=== PATIENT | male | born 1960 | race Caucasian/White ===

== ENCOUNTER 2020-03-19 07:31 | Outpatient (CLI) | payer OTHER, SELFPAY ==
--- NOTE | 2020-03-21 12:44 | SLEEP_ITS ---
Home Sleep Test DATE OF STUDY: 03/19/2020 ORDERING PHYSICIAN: Elisa Charles M.D. REASON FOR THIS STUDY: Hypersomnolence. HISTORY: The patient is a 60-year-old male, 5 feet 7 inches tall weighing 270 pounds with a body mass index of 42.2. His complaints include loud snoring that bothers his . She frequently complains about it. He does not awaken at night with heartburn, belching, coughing, or feeling short of breath. He does not have trouble sleeping with a cold, does not gasp for breath at night, have breathing problems witnessed by others, sweat excessively at night, notices heart pounding irregularly at night, fall asleep during the day, fall asleep involuntarily, while driving, with physical effort and does not have loss of muscle tone with strong emotion. He denies having daytime difficulties due to excess sleepiness. He is self-employed. He does not have loss of muscle tone with strong emotion. He does not feel paralyzed on waking or falling asleep. He does not have vivid dreamlike scenes upon awakening or falling asleep. He is never afraid to go to sleep. He rarely remembers his dreams. He occasionally has racing thoughts. He never has feelings of sadness or depression. He occasionally has anxiety. He does not have muscular tension, notice parts of his body jerking, does not kick at night or have crawly achy feelings in his legs or have leg pain at night. He does not have morning jaw pain. He does not grind his teeth during sleep. He is not bothered by pain during the day nor he is awakened by pain at night. He occasionally wakes up in the morning feeling stiff with sore achy muscles. Normal bedtime is 10:30 p.m., falling asleep in 5 minutes, waking 3 times at night for a few minutes to roll over and then go back to sleep. He awakens in the morning at 5:30. He does not take naps. A short nap is not refreshing. Most of the time he feels good in the morning. He does feel better in the afternoon than the morning. MEDICAL COMORBIDITIES: Prediabetes, hypogonadism on testosterone injections monthly, erectile dysfunction, daytime somnolence. MEDICATIONS: 1. Sildenafil 20 mg 2 tablets p.r.n. 2. Testosterone cypionate 200 mg per/mL injected monthly. HABITS: Never smoked tobacco. Caffeine, 24 ounces of soda a day. No alcohol. No recreational drugs. DESCRIPTION OF THE STUDY: On the [place] Sleepiness Scale, the score is 8. This was conducted as an unattended type 3 portable home sleep test using 4 channel monitoring with respiratory effort channel, snoring channel, oxygen saturation channel, and heart rate channel. This study was scored using [facility] guidelines. The duration was 6 hours 27 minutes. The apnea-hypopnea index is 52, significantly elevated. The oxygen desaturation index is 50. Lowest desaturation is 66%. He had 66 apneas, which were all obstructive, 271 hypopneas, 5449 snoring events and had 322 desaturations spending 118 minutes or 30% of the study below 88% saturation. Pulse ranged from 44 to 82. IMPRESSION: Extremely severe obstructive sleep apnea syndrome G47.33 with an AHI of 52.2, deep sustained desaturation to 66%, loud constant snoring and sustained hypoxemia with 30% of the study or 118 minutes below 88% RECOMMENDATION: The patient should be treated with APAP 5 to 20 cm with close clinical followup. He denies daytime sleepiness, but should be cautioned to be attentive to daytime sleepiness and not drive if he is sleepy. Elevated body mass index of 42.2 is greater than ideal and he should be encouraged to strive to achieve ideal body mass index. Close clinical followup is recommended. ANISH LYLES M.D. DD: 0
== END 2020-03-19 07:32 | disposition home or self-care (01) ==
LOC: ANHCSM 07:48
PROVIDERS: PCP Family Medicine; Visit Provider Family Medicine
DX: R29.818 Other symptoms and signs involving the nervous system (principal); R40.0 Somnolence
CPT/HCPCS: 95806

== ENCOUNTER 2020-12-19 15:28 | Outpatient (CLI) | payer OTHER, SELFPAY ==
--- NOTE | ~2020-12-19 | XR_ITS ---
EXAMINATION: XR lumbar spine 2-3V DATE: 12/19/2020 16:06 INDICATION: Left-sided back pain TECHNIQUE: Anteroposterior and lateral views of the lumbar spine, and cone-down lateral view of the l umbosacral junction were obtained. COMPARISON: None. FINDINGS: Alignment is normal. Vertebral body heights are normal. Mild disc height loss at 11-12. Mild degenera tive endplate changes without significant disc height loss at L3-L4 and L4-L5. Moderate to severe fac et osteoarthritis bilaterally at L5-S1. Sacrum and bilateral sacroiliac joints are unremarkable. IMPRESSION: 1. Severe bilateral facet osteoarthritis at L5-S1. Otherwise minimal lumbar spondylosis. Reviewed, dictated and finalized at location A. IMPRESSION: 1. Severe bilateral facet osteoarthritis at L5-S1. Otherwise minimal lumbar spo ndylosis.
== END 2020-12-19 15:29 | disposition home or self-care (01) ==
PROVIDERS: PCP Family Medicine; Visit Provider Family Medicine
DX: M51.36 Other intervertebral disc degeneration, lumbar region (principal); M47.896 Other spondylosis, lumbar region
CPT/HCPCS: 72100

== ENCOUNTER 2022-10-24 15:43 | Outpatient (CLI) | payer OTHER, SELFPAY ==
[2022-10-24 19:20] LABS: Kit Draw Collected
== END 2022-10-24 15:44 | disposition home or self-care (01) ==
LOC: ANHGOSHLAB 15:45
PROVIDERS: PCP Family Medicine; Visit Provider Nurse Practitioner Family
DX: E55.9 Vitamin D deficiency, unspecified (principal); E29.1 Testicular hypofunction; R73.03 Prediabetes; Z13.220 Encounter for screening for lipoid disorders; Z79.899 Other long term (current) drug therapy; Z12.5 Encounter for screening for malignant neoplasm of prostate
CPT/HCPCS: 36415

== ENCOUNTER 2024-05-17 14:33 | Outpatient (CLI) | payer OTHER, SELFPAY ==
[2024-05-17 20:40] LABS: HIV 1/2 Ab P24 Ag Result Negative (Negative)
[2024-05-17 21:10] LABS: Hepatitis B Surface Antigen Negative (Negative)
[2024-05-17 21:15] LABS: HAV RESULT Negative (Negative); Hepatitis B Core IgM Result Negative (Negative)
[2024-05-17 21:27] LABS: Hepatitis C Virus Antibody Negative (Negative)
[2024-05-17 22:16] LABS: Chlamydia trachomatis NOT DETECTED (NOT DETECTE); Neisseria gonorrhoeae PCR NOT DETECTED (NOT DETECTE)
[2024-05-18 07:45] LABS: Rapid Plasma Reagin Non-Reactive (NonReactive)
== END 2024-05-17 14:34 | disposition home or self-care (01) ==
PROVIDERS: PCP Family Medicine; Visit Provider Family Medicine
DX: Z11.3 Encounter for screening for infections with a predominantly sexual mode of transmission (principal); R35.0 Frequency of micturition
CPT/HCPCS: 36415; 80074; 86592; 86703; 87491; 87591; G0432

== ENCOUNTER 2024-10-28 09:05 | Outpatient (CLI) | payer OTHER, SELFPAY ==
--- OUTSIDE RECORDS SUMMARY | 2024-10-28 09:29 | XMS_ITS | Clinical Summary ---
Author Organization [facility] Address [facility] [place] [address] Care Team Providers Care Lands Resource Manager Name Role Phone Elisa Charles MD Primary Care Provider Allergies Active Allergy Reactions Criticality Noted Date Comments Ragweed Unknown 06/01/2020 Medications sildenafil 20 MG tablet TK 2 TS PO QD PRN FOR SEXUAL ACTIVITY 0 Active testosterone cypionate 200 MG/ML injection TK 200 MG IM MONTHLY 0 Active vitamin C 500 MG tablet Take 500 mg by mouth daily. Active Multiple Vitamin (MULTI-VITAMIN DAILY OR) Active fish oil 1000 MG Cap capsule Take 1,000 mg by mouth 2 (two) times daily. Active vitamin D3 (CHOLECALCIFERO L) 25 mcg tablet Take 1 tablet (25 mcg total) by mouth daily. Active valACYclovir (VALTREX) 1 g tablet Take 1 tablet (1,000 mg total) by mouth 3 (three) times daily. 21 tablet 3 Active naproxen (NAPROSYN) 375 MG tablet Take 1 tablet (375 mg total) by mouth 2 (two) times daily with meals. 60 tablet 4 Active dextromethorpha n-guaiFENesin ER (MUCINEX DM) 30-600 MG TABLET SR 12 HR 12 hr tablet Take 1 tablet by mouth every 12 (twelve) hours as needed. 28 tablet 5 Active fluticasone propionate (FLONASE) 50 MCG/ACT nasal spray 1 spray by Each Nostril route daily as needed. 1 g 5 Active benzonatate (TESSALON) 100 MG capsule Take 1 capsule (100 mg total) by mouth 3 (three) times daily as needed for Cough. 20 capsule 10/20/19 Active Problems No known active problems Encounters Date Type Department Care Team Description 10/13/2024 9:34 AM TRAVEL PT - 10/13/2024 11:28 AM TRAVEL PT Hospital Encounter [facility] [address] [place] [address] Meg Mitchell MD Jarrett, Benjamin, MD Sinus Problem Discharge Disposition: Home or Self Care (Routine Discharge) 10/13/2024 Travel 08/25/2024 9:32 AM TRAVEL PT - 08/25/2024 10:20 AM TRAVEL PT Hospital Encounter [facility] [address] [place] [address] Deborah Krishna DO URI Discharge Disposition: Home or Self Care (Routine Discharge) 08/25/2024 Travel from Last 3 Months Family History Medical History Relation Comments No Known Problems Brother Cancer Father No Known Problems Maternal Aunt No Known Problems Maternal Grandfather No Known Problems Maternal Grandmother No Known Problems Maternal Uncle Cancer Mother No Known Problems Paternal Aunt No Known Problems Paternal Grandfather No Known Problems Paternal Grandmother No Known Problems Paternal Uncle No Known Problems Sister Relation Status Comments Brother Father Maternal Aunt Maternal Grandfather Maternal Grandmother Maternal Uncle Mother Paternal Aunt Paternal Grandfather Paternal Grandmother Paternal Uncle Sister Social History Tobacco Use Types Packs/Day Years Used Date Smoking Tobacco: Never Passive Smoke Exposure: Never Smokeless Tobacco: Never Tobacco Cessation:Counseling Given: Not Answered Alcohol Use Standard Drinks/Week Comments Yes 0 (1 standard drink = 0.6 oz pur e alcohol) Occasionally Sex and Gender Information Value Date Recorded Sex Assigned at Male 10/13/2024 9:29 AM TRAVEL PT Legal Sex Male 11:25 AM CDT Gender Identity Not on file Sexual Orientation Not on file Last Filed Vital Signs Vital Sign Reading Time Taken Comments Blood Pressure 175/76 10/13/2024 9:37 AM TRAVEL PT Pulse 65 10/13/2024 9:37 AM TRAVEL PT Temperature 36.7 C (98.1 F) 10/13/2024 9:37 AM TRAVEL PT Respiratory Rate 18 10/13/2024 9:37 AM TRAVEL PT Oxygen Saturation 97% 10/13/2024 9:37 AM TRAVEL PT Inhaled Oxygen Concentration - - Weight 122.5 kg (270 lb) 10/13/2024 9:37 AM TRAVEL PT Height 172.7 cm (5' 8 ) 10/13/2024 9:37 AM TRAVEL PT Body Mass Index 41.05 10/13/2024 9:37 AM TRAVEL PT Plan of Treatment Health Maintenance Due Date Last Done Comments Colorectal Cancer Screening Colonoscopy (10 Years) 1961 Annual Physical 1964 Hepatitis C 1979 Zoster Vaccines (1 of 2) 2011 RSV Immunization or 60+ Years (1 - Risk 60-74 years 1-dose series) 2021 COVID-19 Vaccine (3 - 2023-2 5 season) 2024 05/06/2021, 04/08/2021 Influenza Adult (#1) 2024 DTaP, Tdap and Td Vaccines ( 2 - Td or Tdap) 02/05/2025 02/05/2015 Meningococcal B Vaccine Aged Out No l onger eligible based on patient's age to complete this topic Meningococcal Vaccine Aged Out No sonia wendy eligible based on patient's age to complete this topic Pneumococcal Vaccine: Pediatrics (0 to 5 Years) and At-Risk Patients (6 to 64 Years) Aged Out No longer eligible b ased on patient's age to complete this topic RSV Immunizations Under 20 Months Aged Out No longer eligible b ased on patient's age to complete this topic Procedures Procedure Name Priority Date/Time Associated Diagnosis Comments XR CHEST PA+LAT STAT 08/25/2024 9:52 AM TRAVEL PT from Last 3 Months Results * XR CHEST PA+LAT (08/25/2024 9:52 AM TRAVEL PT) Anatomical Region Laterality Modality Chest Radiographic Rylee ging 08/25/2024 9:52 AM TRAVEL PT Impressions 08/25/2024 9:53 AM TRAVEL PT IMPRESSION: No acute cardiopulmonary findings. Referred By: Interpreted By: Mehdi Reddy MD, 08/25/2024 9:52 AM Narrative 08/25/2024 9:53 AM TRAVEL PT [address] [address] XR CHEST PA+LAT INDICATION: productive cough, bibasilar rales TECHNIQUE: PA and lateral views of the chest. COMPARISON: None available. FINDINGS: The cardiomediastinal silhouette is within normal limits. There is no pulmonary consolidation. No pleural effusions or pneumothorax. No acute osseous abnormality. Mild thoracic spondylosis. Procedure Note Mehdi Reddy MD - 08/25/[address] [address] XR CHEST PA+LAT INDICATION: productive cough, bibasilar rales TECHNIQUE: PA and lateral views of the chest. COMPARISON: None available. FINDINGS: The cardiomediastinal silhouette is within normal limits. There is nopulmonary consolidation. No pleural effusions or pneumothorax. No acuteosseous abnormality. Mild thoracic spondylosis. IMPRESSION: No acute cardiopulmonary findings. Referred By: Interpreted By: Mehdi Reddy MD, 08/25/2024 9:52 AM Deborah Krishna DO GENERAL IMAGING Final Result from Last 3 Months Insurance [facility] Care Teams Lands Resource Manager Relationship Specialty Start Date End Date Elisa Charles MD PCP - General FAMILY PRACTICE 04/16/20
--- OUTSIDE RECORDS SUMMARY | 2024-10-28 09:29 | XMS_ITS | Clinical Summary ---
Author Organization [facility] [address] [place] [address] Care Team Providers Care Gasoline Tester Name Role Phone Elisa Charles MD Primary Care Provider Allergies No known active allergies Medications amoxicillin-clav ulanate (AUGMENTIN) 875-125 mg per tablet Take 1 tablet by mouth 2 (two) times a day Active ofloxacin (FLOXIN) 0.3 % otic solution 5 drops daily Active ibuprofen (ADVIL,MOTRIN) 400 mg tablet Take by mouth every 6 (six) hours as needed for pain Active Active Problems Problem Noted Date Diagnosed Date Left ear pain 10/15/2022 Medical History Medical History Date Comments Ear problems Left ear pain/pr essure foul odor x 1 mo. Allergic rhinitis Social History Tobacco Use Types Packs/Day Years Used Date Smoking Tobacco: Never Smokeless Tobacco: Never Tobacco Cessation:Counseling Given: Not Answered AUDIT-C Answer Date Recorded Q1: How often do you have a drink containing alc ohol? 2-3 times a week 10/15/2022 Q2: How many drinks containi ng alcohol do you have on a typical day when you are drinking? 1 or 2 10/15/2022 Q3: How often do you have si x or more drinks on one occasion? 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 Gender Identity Not on file Sexual Orientation Not on file Obstetrics History Last Filed Vital Signs Vital Sign Reading Time Taken Comments Blood Pressure - - Pulse - - Temperature - - Respiratory Rate 20 10/15/2022 1:46 PM ABSTRACT WRITER Oxygen Saturation - - Inhaled Oxygen Concentration - - Weight 117.9 kg (260 lb) 10/15/2022 1:46 PM ABSTRACT WRITER Height 170.2 cm (5' 7 ) 10/15/2022 1:46 PM ABSTRACT WRITER Body Mass Index 40.72 10/15/2022 1:46 PM ABSTRACT WRITER Plan of Treatment Health Maintenance Due Date Last Done Comments Colon Cancer Screening-Colonoscopy 1961 Depression Screening 1961 Hepatitis C Screening 1961 Prostate Cancer Screening-PSA 1961 Hepatitis B Screening 1979 Regular Well Visit/Exam 18-64 1979 Zoster Vaccine (1 of 2) 2011 Covid-19 Vaccine (3 - 2023-2 5 season) 2024 05/06/2021, 04/08/2021 Influenza Vaccine (#1) 2024 DTaP/Tdap/Td Vaccine (2 - Td or Tdap) 02/05/2025 02/05/2015 Pneumococcal vaccine <65 Aged Out No longer eligible based on patient's age to complete this topic Insurance [facility] H[facility]PPO Address: [facility] [address] [place] [address] Care Teams Gasoline Tester Relationship Specialty Start Date End Date Elisa Charles MD PCP - General Family Practice 10/15/22
--- OUTSIDE RECORDS SUMMARY | 2024-10-28 09:29 | XMS_ITS | Referral Summary ---
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 Gender Identity Not on file Sexual Orientation Not on file Last Filed Vital Signs Vital Sign Reading Time Taken Comments Blood Pressure - - Pulse - - Temperature - - Respiratory Rate 20 10/15/2022 1:46 PM DRY CELL BATTERY ASSEMBLER Oxygen Saturation - - Inhaled Oxygen Concentration - - Weight 117.9 kg (260 lb) 10/15/2022 1:46 PM DRY CELL BATTERY ASSEMBLER Height 170.2 cm (5' 7 ) 10/15/2022 1:46 PM DRY CELL BATTERY ASSEMBLER Body Mass Index 40.72 10/15/2022 1:46 PM DRY CELL BATTERY ASSEMBLER Plan of Treatment Not on file Insurance [facility] H[facility]PPO Address: [place] [address] Care Teams Delivery Agent Relationship Specialty Start Date End Date Elisa Charles MD PCP - General Family Practice 10/15/22
[2024-10-28 15:39] LABS: Kit Draw Collected
== END 2024-10-28 09:06 | disposition home or self-care (01) ==
LOC: ANHGOSHLAB 09:06
PROVIDERS: PCP Family Medicine; Visit Provider Family Medicine
DX: E55.9 Vitamin D deficiency, unspecified (principal); E78.5 Hyperlipidemia, unspecified; R00.2 Palpitations; Z12.5 Encounter for screening for malignant neoplasm of prostate; Z79.899 Other long term (current) drug therapy; R73.03 Prediabetes; E53.8 Deficiency of other specified B group vitamins; Z00.00 Encounter for general adult medical examination without abnormal findings
CPT/HCPCS: 36415

== ENCOUNTER 2025-01-02 10:11 | Outpatient (CLI) | payer OTHER, SELFPAY ==
--- OUTSIDE RECORDS SUMMARY | 2025-01-02 10:15 | XMS_ITS | Clinical Summary ---
Author Organization [facility] Address [address] [place] [address] Care Team Providers Care Tire Groover Name Role Phone Elisa Charles MD Primary Care Provider Allergies Active Allergy Reactions Criticality Noted Date Comments Ragweed Unknown 06/01/2020 Medications sildenafil 20 MG tablet TK 2 TS PO QD PRN FOR SEXUAL ACTIVITY 05/16/2020 Active testosterone cypionate 200 MG/ML injection TK 200 MG IM MONTHLY 05/17/2020 Active vitamin C 500 MG tablet Take [...] mouth 3 (three) times daily. 21 tablet 02/20/2023 Active naproxen (NAPROSYN) 375 MG tablet Take 1 tablet (375 mg total) by mouth 2 (two) times daily with meals. 60 tablet 08/28/2023 Active dextromethorpha n-guaiFENesin ER (MUCINEX DM) 30-600 MG TABLET SR 12 HR 12 hr tablet Take 1 tablet by mouth every 12 (twelve) hours as needed. 28 tablet 10/13/2024 Active fluticasone propionate (FLONASE) 50 MCG/ACT nasal spray 1 spray by Each Nostril route daily as needed. 1 g 10/13/2024 Active Active Problems No known active problems Encounters Date Type Department Care Team Description 12/29/2024 8:41 AM CDT - 12/29/2024 12:10 PM CDT Emergency [facility] Emergency Room [address] [address] Lobo Rubio MD Generalized Weakness Discharge Disposition: Home or Self Care (Routine Discharge) 12/29/2024 Travel 10/13/2024 9:34 AM STEEP TENDER - 10/13/2024 11:28 AM STEEP TENDER Hospital Encounter [facility] [address] [facility] [place] [address] Meg Mitchell MD Jarrett, Benjamin, MD Sinus Problem Discharge Disposition: Home or Self Care (Routine Discharge) 10/13/2024 Travel from Last 3 Months Family History [...] Sex Assigned at Male 10/13/2024 9:29 AM STEEP TENDER Legal Sex Male 11:25 AM CDT Gender Identity Not on file Sexual Orientation Not on file Last Filed Vital Signs Vital Sign Reading Time Taken Comments Blood Pressure 148/84 12/29/2024 10:00 AM CDT Pulse 92 12/29/2024 8:32 AM CDT Temperature 37.2 C (98.9 F) 12/29/2024 8:32 AM CDT Respiratory Rate 17 12/29/2024 8:32 AM CDT Oxygen Saturation 93% 12/29/2024 10: 00 AM CDT Inhaled Oxygen Concentration - - Weight 111.8 kg (246 lb 7.6 oz) 12/29/2024 8:32 AM CDT Height 172.7 cm (5' 8 ) 12/29/2024 8:32 AM CDT Body Mass Index 37.48 12/29/2024 8:32 AM CDT Plan of Treatment Health Maintenance Due Date Last Done Comments Colorectal Cancer Screening Colonoscopy (10 Years) 1960 Annual Physical 1964 Hepatitis C 1979 Pneumococcal Vaccine: 50+ Years (1 of 1 - PCV) 2011 Zoster Vaccines (1 of 2) 2011 COVID-19 Vaccine (3 - 2023-2 5 season) 2024 05/06/2021, 04/08/2021 DTaP, Tdap and Td Vaccines ( 2 - Td or Tdap) 02/05/2025 02/05/2015 RSV Immunization or 60+ Years (1 - 1-dose 75+ series) 2036 Meningococcal B Vaccine Aged Out No l onger eligible based on patient's age to complete this topic Meningococcal Vaccine Aged Out No sonia wendy eligible based on patient's age to complete this topic RSV Immunizations Under 20 Months Aged Out No longer eligible b ased on patient's age to complete this topic Procedures Procedure Name Priority Date/Time Associated Diagnosis Comments HC URINALYSIS AUTO W/O MICRO STAT 12/29/2024 10:[address] HEAD WO CON STAT 12/29/2024 10:16 AM CDT XR CHEST PORTABLE STAT 12/29/2024 9:1 0 AM CDT ECG 12-LEAD Routine 12/29/2024 8:59 AM CDT FREE T3 STAT 12/29/2024 8:52 AM CDT THYROXINE, FREE (FT4) STAT 12/29/2024 8:52 AM CDT TSH W/REFLEX STAT 12/29/2024 8:52 AM CDT MAGNESIUM STAT 12/29/2024 8:51 AM CDT TROPONIN, QUANT STAT 12/29/2024 8:51 AM CDT COMPREHENSIVE METABOLIC PANEL STAT 12/29/2024 8:51 AM CDT CBC W/DIFF AUTOMATED STAT 12/29/2024 8:51 AM CDT from Last 3 Months Results * URINALYSIS (12/29/2024 10:56 AM CDT) SPECIMEN TYPE URINE CLEAN CATCH 12/29/2024 10:56 AM CDT [facility] COLOR (U) YELLOW 12/29/2024 11:21 AM CDT [facility] TRANSPARENCY CLEAR 12/29/2024 11:21 AM CDT [facility] SPECIFIC GRAVITY (U) 1.023 1.001 - 1.030 12/29/2024 11:21 AM CDT [facility] U PH 5.0 5.0 - 9.0 12/29/2024 11:21 AM CDT [facility] LEUKOCYTES (U) NEGATIVE NEGATIVE 12/29/2024 11:21 AM CDT [facility] NITRITES NEGATIVE NEGATIVE 12/29/2024 11:21 AM CDT [facility] PROTEIN RANDOM (U) NEGATIVE <30 MG/DL 12/29/2024 11:21 AM CDT [facility] GLUCOSE (U) NORMAL NORMAL MG/DL 12/29/2024 11:21 AM CDT [facility] KETONES MG/DL (U) NEGATIVE NEGATIVE MG/DL 12/29/2024 11:21 AM CDT [facility] UROBILINOGEN NORMAL NORMAL MG/DL 12/29/2024 11:21 AM CDT [facility] BILIRUBIN (U) NEGATIVE NEGATIVE MG/DL 12/29/2024 11:21 AM CDT [facility] BLOOD (U) NEGATIVE NEGATIVE 12/29/2024 11:21 AM CDT [facility] URINE SPECIMEN OBTAINED BY CLEAN CATCH PROCEDURE / Unknown 12/29/2024 10:56 AM CDT Lobo Rubio MD URINE ORDERABLES Final Result [facility] [address] [place] [address], [place] [phone] * CT HEAD WO CON (12/29/2024 10:16 AM CDT) Anatomical Region Laterality Modality Head Computed Tomogra phy 12/29/2024 10:1 9 AM CDT Impressions 12/29/2024 10:19 AM CDT IMPRESSION: No CT evidence of an acute intracranial abnormality. Ordered By: LOBO RUBIO Interpreted By: Galdino Nino MD, 12/29/2024 10:19 AM Narrative 12/29/2024 10:19 AM CDT [facility] [address] [place], [place] [address] Examination: CT HEAD WO CON, 12/29/2024 10:09 AM. Technique: Computed tomographic images of the head were obtained without intravenous contrast. Additional coronal and sagittal reformatted images were generated at a separate workstation. A dose lowering technique was used for this procedure, which may include, but is not limited to, dose reduction technique, automated exposure control, the use of iterative reconstruction, and ALARA (As Low As Reasonably Achievable) / Image Gently techniques. Clinical history: diffuse weakness Comparison: None available Findings: There is no acute intracranial hemorrhage. There is no extra-axial fluid collection. Preserved clemons-white matter differentiation. The ventricles are normal in size. The basal cisterns appear normal. Orbital contents appear normal. Paranasal sinuses and mastoid air cells are well aerated. There is no acute fracture nor destructive process of the visualized osseous structures. Procedure Note Galdino Nino MD - 12/29/2024 [facility] [address] [place], [place] [address] Examination: CT HEAD WO CON, 12/29/2024 10:09 AM. Technique: Computed tomographic images of the head were obtained withoutintravenous contrast. Additional coronal and sagittal reformatted imageswere generated at a separate workstation. A dose lowering technique wasused for this procedure, which may include, but is not limited to, dosereduction technique, automated exposure control, the use of iterativereconstruction, and ALARA (As Low As Reasonably Achievable) / Image Gentlytechniques. Clinical history: diffuse weakness Comparison: None available Findings: There is no acute intracranial hemorrhage. There is no extra-axial fluidcollection. Preserved clemons-white matter differentiation. The ventriclesare normal in size. The basal cisterns appear normal. Orbital contentsappear normal. Paranasal sinuses and mastoid air cells are well aerated.There is no acute fracture nor destructive process of the visualizedosseous structures. IMPRESSION: No CT evidence of an acute intracranial abnormality. Ordered By: LOBO RUBIO Interpreted By: Galdino Nino MD, 12/29/2024 10:19 AM Lobo Rubio MD CT Final R esult * XR CHEST PORTABLE (12/29/2024 9:10 AM CDT) Anatomical Region Laterality Modality Chest Radiographic Rylee ging 12/29/2024 9:32 AM CDT Impressions 12/29/2024 9:35 AM CDT IMPRESSION: No acute pulmonary infiltrate or consolidation. Ordered By: PATIENCE HENSLEY Interpreted By: Jay Mahoney, 12/29/2024 9:32 AM Narrative 12/29/2024 9:35 AM CDT [address] [address] IMAGING STUDIES: XR CHEST PORTABLE DATE: 12/29/2024 8:54 AM HISTORY: palpitations 64-year-old male. Palpitations. Patient reports sensation of tachycardia last night when laying down. Generalized weakness and fatigue for a couple weeks. Patient is reportedly 5 feet 8 inches, 246 pounds, and BMI 37.5 today. COMPARISON: Chest 2 view 08/25/2024. DISCUSSION: Portable AP upright view of the chest. More lordotic positioning compared to 2 view chest 08/25/2024. Heart size is towards upper limits normal and likely accentuated by AP projection and body habitus. No acute pulmonary vascular congestion. No acute pulmonary infiltrate, pulmonary consolidation, pleural effusion, or pneumothorax. Spinal degenerative changes. Procedure Note Jay Mahoney MD - 12/29/[address] [address] IMAGING STUDIES: XR CHEST PORTABLEDATE: 12/29/2024 8:54 AM HISTORY: palpitations 64-year-old male. Palpitations. Patient reportssensation of tachycardia last night when laying down. Generalized weaknessand fatigue for a couple weeks. Patient is reportedly 5 feet 8 inches, 246pounds, and BMI 37.5 today. COMPARISON: Chest 2 view 08/25/2024. DISCUSSION: Portable AP upright view of the chest. More lordotic positioning comparedto 2 view chest 08/25/2024. Heart size is towards upper limits normal and likely accentuated by APprojection and body habitus. No acute pulmonary vascular congestion. No acute pulmonary infiltrate, pulmonary consolidation, pleural effusion,or pneumothorax. Spinal degenerative changes. IMPRESSION: No acute pulmonary infiltrate or consolidation. Ordered By: PATIENCE HENSLEY Interpreted By: Jay Mahoney, 12/29/2024 9:32 AM us [facility] GENERAL IMAGING Final Result * ECG 12 lead (12/29/2024 8:59 AM CDT) 12/29/2024 8:59 AM CDT Narrative [facility] - 12/29/2024 11:[address] [facility] [address] Test Date: 2024-12-29 Pat Name: ESTER RIVEROFER Department: 41 Room: EXAM17 Gender: Male Torch Burner: [id number] : 1960 Requested By: PATIENCE HENSLEY Order Number: [id number] Reading MD: Marbin Joseph Measurements Intervals [place] Rate: 89 P: 26 MD: 164 QRS: 26 QRSD: 94 T: 22 QT: 331 QTc: 405 Interpretive Statements SINUS RHYTHM No previous ECG available for comparison No ischemic changes Preliminary EKG Interpretation by Patience Hensley PMaged Procedure Note Marbin Joseph MD - 12/29/2024 [facility] [address] Test Date: 2024-12-29 Pat Name: ESTER BOLEY Department: 41 Room: EXAM17 Gender: Male Torch Burner: [id number] : 1960 Requested By: PATIENCE HENSLEY Order Number: [id number] Reading MD: Marbin Joseph Measurements Intervals [place] Rate: 89 P: 26 MD: 164 QRS: 26 QRSD: 94 T: 22 QT: 331 QTc: 405 Interpretive Statements SINUS RHYTHM No previous ECG available for comparison No ischemic changes Preliminary EKG Interpretation by Valeria Dumont us Patience JUNIOR ECG ORDERABLES Final Result [facility] * (ABNORMAL) TSH W/REFLEX (12/29/2024 8:52 AM CDT) TSH <0.005(L) 0.358 - 3.74 uIU/ML 12/29/2024 10:51 AM CDT [facility] Comment: HIGH DOSES OF BIOTIN MAY INTERFERE WITH THIS TEST RESULT. CORRELATION TO CLINICAL HISTORY AND PRESENTATION RECOMMENDED. 12/29/2024 8:52 AM CDT Lobo Rubio MD LABORATORY Final R esult Performing Organization Address [facility]/ZIP Co de Phone Number [facility] [address] [place] [address], [place] [phone] * (ABNORMAL) FREE T3 (12/29/2024 8:52 AM CDT) FREE T3 33.9(H) 2.18 - 3.98 PG/ML 12/29/2024 5:52 PM CDT [facility] 12/29/2024 8:52 AM CDT Lobo Rubio MD LABORATORY Final R esult Performing Organization Address City/[facility]/ZIP Co de Phone Number [facility] [address] [place] [address], [place] [phone] * (ABNORMAL) THYROXINE, FREE (FT4) (12/29/2024 8:52 AM CDT) FREE T4 >8.00(H) 0.76 - 1.46 NG/DL 12/29/2024 11:36 AM CDT [facility] 12/29/2024 8:52 AM CDT us Lobo Rubio MD LABORATORY Final R esult [facility] [address] [place] [address], * (ABNORMAL) COMPREHENSIVE METABOLIC PANEL (12/29/2024 8:51 AM CDT) [facility] Signature GLUCOSE 149(H) 70 - 99 MG/DL 12/29/2024 9:26 AM CDT [facility] BUN 33(H) 7 - 18 MG/DL 12/29/2024 9:26 AM CDT [facility] CREATININE S/P/B 0.90 0.7 - 1.3 MG/DL 12/29/2024 9:26 AM CDT [facility] SODIUM S/P/B 137 136 - 145 MMOL/L 12/29/2024 9:26 AM CDT [facility] POTASSIUM S/P/B 4.6 3.5 - 5.1 MMOL/L 12/29/2024 9:26 AM CDT [facility] CHLORIDE S/P/B 107 97 - 115 MMOL/L 12/29/2024 9:26 AM CDT [facility] CO2 24.1 21 - 32 MMOL/L 12/29/2024 9:26 AM CDT [facility] CALCIUM S/P/B 11.3(H) 8.5 - 10.1 MG/DL 12/29/2024 9:26 AM CDT [facility] BILIRUBIN TOTAL S/P/B 0.9 0.2 - 1.2 MG/DL 12/29/2024 9:26 AM CDT [facility] Comment: THIS ASSAY IS NOT RECOMMENDED FOR PATIENTS UNDERGOING TREATMENT WITH ELTROMBOPAG DUE TO THE POTENTIAL FOR FALSELY ELEVATED RESULTS. TOTAL PROTEIN S/P/B 8.2 6.4 - 8.2 G/DL 12/29/2024 9:26 AM CDT [facility] ALBUMIN S/P/B 3.5 3.4 - 5.0 G/DL 12/29/2024 9:26 AM CDT [facility] AST 83(H) 15 - 37 U/L 12/29/2024 9:26 AM CDT [facility] ALT 176(H) 16 - 60 U/L 12/29/2024 9:26 AM CDT [facility] ALKALINE PHOSPHATASE S/P/B 69 50 - 136 U/L 12/29/2024 9:26 AM T [facility] ANION GAP 5.9 2 - 10 MMOL/L 12/29/2024 9:26 AM T [facility] BUN CREATININE RATIO 36.8(H) 6 - 12/29/2024 9:26 AM T [facility] A/G RATIO 0.7(L) 1.0 - 2.0 RATIO 12/29/2024 9:26 AM T [facility] GFR ESTIMATE >90 >90 ML/MIN/1.7 3 M2 12/29/2024 9:26 AM T [facility] Comment: NOTE: eGFR is not calculated for patients <18 years of age or gender unknown. This is an estimated GFR calculation using the new CKD EPI creatinine equation without race and so does not require a correction factor for race. This estimated GFR should not be used for calculating drug doses. 12/29/2024 8:51 AM CDT [facility] LABORATORY Final Result [facility] [address] [place] [address], [place] [phone] * (ABNORMAL) CBC W/DIFF AUTOMATED (12/29/2024 8:51 AM CDT) [facility] Signature WBC 9.00 4.5 - 11.0 x10'3/uL 12/29/2024 9:03 AM CDT [facility] RBC 5.59 4.70 - 6.10 x10'6/uL 12/29/2024 9:03 AM CDT [facility] HGB 16.7 14.0 - 18.0 G/DL 12/29/2024 9:03 AM CDT [facility] HCT 51.2 43.0 - 54.0 % 12/29/2024 9:03 AM CDT [facility] MCV 91.6 80.0 - 94.0 FL 12/29/2024 9:03 AM CDT [facility] MCH 29.9 27.0 - 31.0 PG 12/29/2024 9:03 AM CDT [facility] MCHC 32.6 32.0 - 36.0 G/DL 12/29/2024 9:03 AM CDT [facility] RDW 13.2 11.5 - 14.5 % 12/29/2024 9:03 AM CDT [facility] PLT 233 130 - 400 x10'3/uL 12/29/2024 9:03 AM CDT [facility] MPV 11.1 9.3 - 12.2 FL 12/29/2024 9:03 AM CDT [facility] DIFFERENTIAL TYPE MANUAL DIFFERENTIAL 12/29/2024 9:31 AM CDT [facility] SEG NEUTROPHILS 32 % 9:31 AM CDT [facility] LYMPHOCYTES 55 % 12/29/2024 9:31 AM CDT [facility] MONOCYTES 13 % 12/29/2024 9:31 AM CDT [facility] ABS. NEUTROPHILS 2.88 1.80 - 7.70 x10'3/uL 12/29/2024 9:31 AM CDT [facility] ABS. LYMPHOCYTES 4.95(H) 1.00 - 4.80 x10'3/uL 12/29/2024 9:31 AM CDT [facility] ABS. MONOCYTES 1.17(H) 0.30 - 0.82 x10'3/uL 12/29/2024 9:31 AM CDT [facility] RBC MORPHOLOGY RBC MORPHOLOGY APPEARS NORMAL. SLIDE REVIEWED. 12/29/2024 9:31 AM CDT [facility] PLT EST. ADEQUATE 12/29/2024 9:31 AM CDT [facility] 12/29/2024 8:51 AM CDT [facility] LABORAT[facility] Final Result [facility] [address] [place] [address], [place] [phone] * TROPONIN, QUANT (12/29/2024 8:51 AM CDT) TROPONIN I HIGH SENSITIVITY 17 <79 ng/L 12/29/2024 9:26 AM CDT [facility] Comment: HIGH DOSES OF BIOTIN, TROPONIN-SPECIFIC AUTOANTIBODIES, AND ANTIBODY THERAPY CONTAINING HAMA MAY INTERFERE WITH THIS TEST RESULT. CORRELATION TO CLINICAL HISTORY AND PRESENTATION RECOMMENDED. 12/29/2024 8:51 AM CDT [facility] LABORATORY Final Result [facility] [address] [place] [address], [place] [phone] * MAGNESIUM (12/29/2024 8:51 AM CDT) MAGNESIUM 1.9 1.8 - 2.4 MG/DL 12/29/2024 9:26 AM CDT [facility] 12/29/2024 8:51 AM CDT [facility] LABORATORY Final Result [facility] [address] [place] [address], from Last 3 Months Insurance [facility] Care Teams Tire Groover Relationship Specialty Start Date End Date Elisa Charles MD PCP - General FAMILY PRACTICE 04/16/20
--- OUTSIDE RECORDS SUMMARY | 2025-01-02 10:15 | XMS_ITS | Referral Summary ---
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 Gender Identity Not on file Sexual Orientation Not on file Last Filed Vital Signs Vital Sign Reading Time Taken Comments Blood Pressure - - Pulse - - Temperature - - Respiratory Rate 20 10/15/2022 1:46 PM FURNACE REPAIRER Oxygen Saturation - - Inhaled Oxygen Concentration - - Weight 117.9 kg (260 lb) 10/15/2022 1:46 PM FURNACE REPAIRER Height 170.2 cm (5' 7 ) 10/15/2022 1:46 PM FURNACE REPAIRER Body Mass Index 40.72 10/15/2022 1:46 PM FURNACE REPAIRER Plan of Treatment Not on file Insurance [employer] Care Teams Cigarette Seller Relationship Specialty Start Date End Date Elisa Charles MD PCP - General Family Practice 10/15/22
--- OUTSIDE RECORDS SUMMARY | 2025-01-02 10:15 | XMS_ITS | Clinical Summary ---
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 Gender Identity Not on file Sexual Orientation Not on file Obstetrics History Last Filed Vital Signs Vital Sign Reading Time Taken Comments Blood Pressure - - Pulse - - Temperature - - Respiratory Rate 20 10/15/2022 1:46 PM ARTIFICIAL INSEMINATOR Oxygen Saturation - - Inhaled Oxygen Concentration - - Weight 117.9 kg (260 lb) 10/15/2022 1:46 PM ARTIFICIAL INSEMINATOR Height 170.2 cm (5' 7 ) 10/15/2022 1:46 PM ARTIFICIAL INSEMINATOR Body Mass Index 40.72 10/15/2022 1:46 PM ARTIFICIAL INSEMINATOR Plan of Treatment Health Maintenance Due Date [...] to complete this topic Insurance [employer] [facility] H[facility]/PPO Address: [facility] [address] [place] [address] Care Teams Miniature Model Maker Relationship Specialty Start Date End Date Elisa Charles MD PCP - General Family Practice 10/15/22
[2025-01-02 15:57] LABS: Alanine Aminotransferase 164 U/L (6-50); Albumin Level 4.2 g/dL (3.5-5.1); Alkaline Phosphatase 71 U/L (38-126); Anion Gap 11 mmol/L (4-12); Aspartate Amino Transferase 135 U/L (17-59); Bilirubin,Total 0.6 mg/dL (0.2-1.3); Blood Urea Nitrogen 28 mg/dL (9-20); Calcium 10.3 mg/dL (8.4-10.2); Carbon Dioxide 24 mmol/L (22-30); Chloride 103 mmol/L (98-107); Estimated Glomerular Filt Rate > 60; Glucose 142 mg/dL (65-110); Potassium 4.5 mmol/L (3.4-5.0); Sodium 138 mmol/L (137-145)
[2025-01-02 17:31] LABS: Thyroid Stimulating Hormone < 0.015 uIU/mL (0.465-4.680)
[2025-01-02 17:40] LABS: Total Triiodothyronine (T3) > 7.81 NG/ML (0.97-1.69)
[2025-01-02 20:06] LABS: Free T4 Free Thyroxine > 6.99 ng/dL (0.78-2.19)
[2025-01-02 21:56] LABS: Hemoglobin A1C 6.6 % (<5.7)
[2025-01-04 08:13] LABS: Thyroid Peroxidase Antibodies <1 IU/mL (<9)
== END 2025-01-02 10:12 | disposition home or self-care (01) ==
PROVIDERS: PCP Family Medicine; Visit Provider Nurse Practitioner Family
DX: E07.9 Disorder of thyroid, unspecified (principal); R74.8 Abnormal levels of other serum enzymes; E11.9 Type 2 diabetes mellitus without complications
CPT/HCPCS: 36415; 80053; 83036; 83519; 84439; 84443; 84445; 84480

== ENCOUNTER 2025-01-11 08:15 | Outpatient (CLI) | payer OTHER, SELFPAY ==
[2025-01-11 13:09] LABS: Alanine Aminotransferase 96 U/L (6-50); Alkaline Phosphatase 69 U/L (38-126); Anion Gap 8 mmol/L (4-12); Aspartate Amino Transferase 89 U/L (17-59); Bilirubin,Total 0.6 mg/dL (0.2-1.3); Blood Urea Nitrogen 26 mg/dL (9-20); Calcium 10.3 mg/dL (8.4-10.2); Carbon Dioxide 28 mmol/L (22-30); Chloride 103 mmol/L (98-107); Estimated Glomerular Filt Rate > 60; Glucose 102 mg/dL (65-110); Potassium 4.3 mmol/L (3.4-5.0); Sodium 139 mmol/L (137-145)
[2025-01-11 13:55] LABS: Hepatitis B Surface Antigen Negative (Negative)
[2025-01-11 14:01] LABS: HAV RESULT Negative (Negative); Hepatitis B Core IgM Result Negative (Negative)
[2025-01-11 14:12] LABS: Hepatitis C Virus Antibody Negative (Negative)
== END 2025-01-11 08:16 | disposition home or self-care (01) ==
LOC: ANHGOSHLAB 08:16
PROVIDERS: PCP Family Medicine; Visit Provider Family Medicine
DX: R74.8 Abnormal levels of other serum enzymes (principal); I10 Essential (primary) hypertension
CPT/HCPCS: 36415; 80053; 80074

== ENCOUNTER 2025-01-17 10:10 | Outpatient (CLI) | payer OTHER, SELFPAY ==
--- NOTE | ~2025-01-17 | US_ITS ---
EXAMINATION: US thyroid DATE: 01/17/2025 10:37 INDICATION: Thyrotoxicosis TECHNIQUE: Multiple ultrasound images of the thyroid were obtained. COMPARISON: None. FINDINGS: The right thyroid lobe measures 5.0 x 3.0 x 2.4 cm. The left thyroid lobe measures 4.7 x 2.2 x 2.1 cm. The isthmus measures 0.7cm in anterior to posterior dimension. There is homogeneous echotexture and echogenicity throughout the thyroid gland. No discrete nodules identified. High normal vascular flow is present. IMPRESSION: Unremarkable sonographic evaluation of the thyroid gland, as detailed above. Reviewed, dictated and finalized at location A.
--- NOTE | ~2025-01-17 | US_ITS ---
Limited Abdominal Sonogram: Real-time sonographic imaging of the right upper quadrant was performed. Clinical History: Abnormal serum enzyme levels Findings: The liver appears normal with no evidence of mass lesion or bile duct dilatation. Main por omayra vein demonstrates normal direction of flow. The gallbladder is well distended, and appears normal with no evidence of gallstone or wall thickening. The common bile duct measures 4 mm. The visualize d pancreas, aorta, and IVC are unremarkable. Impression: No significant abnormality seen. Reviewed, dictated and finalized at location M. Impression: No significant abnormality seen.
== END 2025-01-17 10:11 | disposition home or self-care (01) ==
LOC: MICIMG 10:11
PROVIDERS: PCP Family Medicine; Visit Provider Family Medicine
DX: E05.90 Thyrotoxicosis, unspecified without thyrotoxic crisis or storm (principal); R74.8 Abnormal levels of other serum enzymes
CPT/HCPCS: 76536; 76705

== ENCOUNTER 2025-01-30 09:04 | Outpatient (CLI) | payer OTHER, SELFPAY ==
--- OUTSIDE RECORDS SUMMARY | 2025-01-30 09:38 | XMS_ITS | Clinical Summary ---
Author Organization 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 Gender Identity Not on file Sexual Orientation Not on file Obstetrics History Last Filed Vital Signs Vital Sign Reading Time Taken Comments Blood Pressure - - Pulse - - Temperature - - Respiratory Rate 20 10/15/2022 1:46 PM HYDROLOGY TEACHER Oxygen Saturation - - Inhaled Oxygen Concentration - - Weight 117.9 kg (260 lb) 10/15/2022 1:46 PM HYDROLOGY TEACHER Height 170.2 cm (5' 7) 10/15/2022 1:46 PM HYDROLOGY TEACHER Body Mass Index 40.72 10/15/2022 1:46 PM HYDROLOGY TEACHER Plan of Treatment Health Maintenance Due Date Last Done Comments Colon Cancer Screening-Colonoscopy 1960 Depression Screening 1960 Hepatitis C Screening 1960 Prostate Cancer Screening-PSA 1961 Hepatitis B Screening 1979 Regular Well Visit/Exam 18-64 1979 Zoster Vaccine (1 of 2) 2011 Covid-19 Vaccine (3 - 2023-2 5 season) 2024 05/06/2021, 04/08/2021 DTaP/Tdap/Td Vaccine (2 - Td or Tdap) 02/05/2025 02/05/2015 Influenza Vaccine (Season Ended) 2025 Pneumococcal vaccine <65 Aged Out No longer eligible based on patient's age to complete this topic [place] [address] Care Teams Household Appliance Repairer Relationship Specialty Start Date End Date Elisa Charles MD PCP - General Family Practice 10/15/22
--- OUTSIDE RECORDS SUMMARY | 2025-01-30 09:38 | XMS_ITS | Referral Summary ---
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 Gender Identity Not on file Sexual Orientation Not on file Last Filed Vital Signs Vital Sign Reading Time Taken Comments Blood Pressure - - Pulse - - Temperature - - Respiratory Rate 20 10/15/2022 1:46 PM ICE RESURFACING MACHINE OPERATORS Oxygen Saturation - - Inhaled Oxygen Concentration - - Weight 117.9 kg (260 lb) 10/15/2022 1:46 PM ICE RESURFACING MACHINE OPERATORS Height 170.2 cm (5' 7) 10/15/2022 1:46 PM ICE RESURFACING MACHINE OPERATORS Body Mass Index 40.72 10/15/2022 1:46 PM ICE RESURFACING MACHINE OPERATORS Plan of Treatment Not on file Insurance [employer] [facility] H[facility]/PPO Address: [place] [address] Care Teams Food Service Worker Relationship Specialty Start Date End Date Elisa Charles MD PCP - General Family Practice 10/15/22
[2025-01-30 13:49] LABS: Alanine Aminotransferase 42 U/L (6-50); Albumin Level 3.9 g/dL (3.5-5.1); Alkaline Phosphatase 72 U/L (38-126); Anion Gap 5 mmol/L (4-12); Aspartate Amino Transferase 61 U/L (17-59); Bilirubin,Total 0.6 mg/dL (0.2-1.3); Blood Urea Nitrogen 21 mg/dL (9-20); Calcium 10.5 mg/dL (8.4-10.2); Carbon Dioxide 27 mmol/L (22-30); Chloride 106 mmol/L (98-107); Estimated Glomerular Filt Rate > 60; Glucose 133 mg/dL (65-110); Potassium 4.3 mmol/L (3.4-5.0); Sodium 138 mmol/L (137-145)
== END 2025-01-30 09:05 | disposition home or self-care (01) ==
LOC: ANHGOSHLAB 09:05
PROVIDERS: PCP Family Medicine; Visit Provider Family Medicine
DX: R74.8 Abnormal levels of other serum enzymes (principal)
CPT/HCPCS: 36415; 80053

== ENCOUNTER 2025-07-06 10:29 | Outpatient (CLI) | payer OTHER, SELFPAY ==
--- OUTSIDE RECORDS SUMMARY | 2025-07-06 11:24 | XMS_ITS | Clinical Summary ---
Author Organization [facility] [place] Address [address] [place] [address] Care Team Providers Care History Department Chair Name Role Phone Elisa Charles MD Primary Care Provider Allergies No known active allergies Medications ibuprofen (ADVIL,MOTRIN) 400 mg tablet Take by mouth every 6 (six) hours as needed for pain Active metFORMIN XR (GLUCOPHAGE XR) 500 mg 24 hr tablet Take 1 tablet (500 mg total) by mouth nightly 5 Active propranoloL (INDERAL) 20 mg tablet Take 1 tablet (20 mg total) by mouth every 12 (twelve) hours 5 Active testosterone cypionate (DEPO-TESTOTERO NE) 200 mg/mL injection 1 mL (200 mg total) every 28 (twenty-eigh t) days 0 Active methIMAzole (TAPAZOLE) 5 mg tablet Take 1 tablet (5 mg total) by mouth daily 5 06/26/20 25 Discontinu ed(Alterna te therapy) Active Problems Problem Noted Date Diagnosed Date Hyperthyroidism 04/06/2025 Overview (04/06/2025): Check free t4 tsh TSA, Options of therpay explained incuding medication, surgery and RIOS discussed. 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 Office Visit [facility] [address] [place] [address] [place] [phone] Joel Caal MD Hyperthyroidism (Primary Dx) 06/26/2025 Results Follow-Up [facility] [address] [place] [phone] Jole Caal MD TSH, T4, free 05/22/2025 Telephone [facility] [address] [place] [phone] Benita Talley, ANDRÉS 05/19/2025 12:14 PM CDT - 05/19/2025 11:59 PM CDT Hospital Encounter [facility] [address] [place] [address] Hyperthyroidism Discharge Disposition: Discharge to home or self care 05/19/2025 10:00 AM CDT - 05/19/2025 11:59 PM CDT Hospital Encounter [facility] [address] [place] [address] Discharge Disposition: Discharge to home or self care 05/19/2025 Telephone [facility] [address] [place] [phone] Benita Talley, ANDRÉS 05/18/2025 11:45 AM CDT Lab [facility] [place] 1 [facility] 1st [place] [phone] 05/18/2025 8:57 AM CDT - 05/18/2025 11:59 PM CDT Hospital Encounter [facility] [address] [place] [address] Hyperthyroidism Discharge Disposition: Discharge to home or self care 05/18/2025 8:57 AM CDT - 05/18/2025 11:59 PM CDT Hospital Encounter [facility] [address] [place] [address] Discharge Disposition: Discharge to home or self care 05/18/2025 8:57 AM CDT - 05/18/2025 11:59 PM CDT Hospital Encounter [facility] [address] [facility] [address] Hyperthyroidism Discharge Disposition: Discharge to home or self care 04/19/2025 Orders Only [facility] [address] [place] [address] [place] [phone] Benita Talley NP Hyperthyroidism (Primary Dx) 04/06/2025 3:03 PM CDT - 04/06/2025 11:59 PM CDT Hospital Encounter [facility] [address] [place] [address] Hyperthyroidism Discharge Disposition: Discharge to home or self care 04/06/2025 2:30 PM CDT Office Visit [facility] [address] [place] [address] [place] [phone] Joel Caal MD Hyperthyroidism (Primary Dx) 04/06/2025 Telephone [facility] [address] [place] [address] [place] [phone] Joel Caal MD from Last 3 Months Medical History Medical History Date Comments Ear [...] more drinks on one occasion? 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 Gender Identity Not on file Sexual Orientation Not on file Last Filed Vital Signs Vital Sign Reading Time Taken Comments Blood Pressure 154/66 06/26/2025 11:21 AM AUTOMOTIVE PAINTER HELPER Pulse 67 06/26/2025 11:21 AM AUTOMOTIVE PAINTER HELPER Temperature - - Respiratory Rate 20 10/15/2022 1:46 PM AUTOMOTIVE PAINTER HELPER Oxygen Saturation 96% 06/26/2025 11: 21 AM AUTOMOTIVE PAINTER HELPER Inhaled Oxygen Concentration - - Weight 110.6 kg (243 lb 12.8 oz) 2024 11:21 AM AUTOMOTIVE PAINTER HELPER Height 172.7 cm (5' 8) 06/26/2025 11:2 1 AM AUTOMOTIVE PAINTER HELPER Body Mass Index 37.07 06/26/2025 11:21 AM AUTOMOTIVE PAINTER HELPER Plan of Treatment Health Maintenance Due Date Last Done Comments Colon Cancer Screening-Colonoscopy 1961 Depression Screening 1961 Hepatitis C Screening 1961 Prostate Cancer Screening-PSA 1961 Hepatitis B Screening 1979 Regular Well Visit/Exam 18-64 1979 Zoster Vaccine (1 of 2) 2011 DTaP/Tdap/Td Vaccine (3 - Td or Tdap) 02/05/2025 02/05/2015, 10/16/2014 Covid-19 Vaccine (3 - 2024-2 6 season) 2025 05/06/2021, 04/08/2021 Influenza Vaccine (#1) 2025 Pneumococcal vaccine <65 Aged Out No longer eligible based on patient's age to complete this topic Procedures Procedure Name Priority Date/Time Associated Diagnosis Comments T4, FREE Routine 06/26/2025 11:48 AM AUTOMOTIVE PAINTER HELPER Hyperthyroidism TSH Routine 06/26/2025 11:48 AM AUTOMOTIVE PAINTER HELPER Hyperthyroidism NM HYPERTHYROID I-131 THERAPY Schedule Routine, Read Routine (OP Routine) 05/19/2025 2:40 PM CDT Hyperthyroidism NM CONSULTATION I-131 OUTPATIENT Schedule Routine, Read Routine (OP Routine) 05/19/2025 2:40 PM CDT Hyperthyroidism NM THYROID THERAPY INITIAL CONSULT Schedule Routine, Read Routine (OP Routine) 05/19/2025 2:40 PM CDT Hyperthyroidism NM THYROID IMAGING WITH UPTAKE(S) Schedule Routine, Read Routine (OP Routine) 05/19/2025 2:40 PM CDT Hyperthyroidism T3, FREE Routine 05/18/2025 11:19 AM CDT T4, FREE Routine 05/18/2025 11:19 AM CDT TSH Routine 05/18/2025 11:19 AM CDT THYROID STIMULATING IMMUNOGLOBULIN Routine 04/06/2025 3:03 PM CDT Hyperthyroidism T4, FREE Routine 04/06/2025 2:59 PM CDT Hyperthyroidism TSH Routine 04/06/2025 2:59 PM CDT Hyperthyroidism from Last 3 Months Results * (ABNORMAL) TSH (06/26/2025 11:48 AM AUTOMOTIVE PAINTER HELPER) TSH <0.01(L) 0.27 - 4.20 uIU/mL [facility] Blood 06/26/2025 11:4 8 AM AUTOMOTIVE PAINTER HELPER 06/26/2025 11:54 AM AUTOMOTIVE PAINTER HELPER Joel Caal MD LAB BLOOD ORDERABLES Fin al Result Performing Organization Address City/[facility]/ZIP Co de Phone Number [address] * (ABNORMAL) T4, free (06/26/2025 11:48 AM AUTOMOTIVE PAINTER HELPER) Free T4 2.58(HH) 0.93 - 1.70 ng/dL [facility] Comment:no chat for ft4 AM Blood 06/26/2025 11:4 8 AM AUTOMOTIVE PAINTER HELPER 06/26/2025 11:54 AM AUTOMOTIVE PAINTER HELPER Joel Caal MD LAB BLOOD ORDERABLES Fin al Result [place] [address] * NM Thyroid Therapy Initial Consult (05/19/2025 2:40 PM CDT) Anatomical Region Laterality Modality Body N/A Nuclear Medicine 05/19/2025 3:34 PM CDT Impressions 05/19/2025 5:45 PM CDT Diffusely increased thyroid gland tracer and I-131 uptake, suggestive of Graves' disease. CONSULTATION AND RADIOACTIVE IODINE THERAPY DATE: 05/19/2025 HISTORY: 65 years-old Male referred by Dr. Caal for consultation, evaluation and treatment of hyperthyroidism. The patient originally complained of palpitations and marked weight loss, workup revealed hyper thyroidism, the patient was treated medically with propranolol and methimazole, which controlled his symptoms. PHYSICAL FINDINGS: the patient was alert and cooperative, the thyroid gland was mildly enlarged on palpation, his pulse was 80 bpm and regular, he had clear lungs no appreciable cardiac abnormality on auscultation, the patient had mild lower limbs subcutaneous edema without pretibial myxedema. No signs of exophthalmos or any occular abnormalities. No exaggerated tremors were identified. LABORATORY FINDINGS: his recent labs on 05/18/2025 was as follows: free T3 of 14.9 pg/mL, free T4 of 4.23 ng/dL and TSH of >0.01. IMPRESSION: The history, physical findings and laboratory studies in this patient indicate hyperthyroidism, due to diffuse toxic goiter (Graves' disease). There are no complicating medical problems. This patient was discussed with Dr. Bourne and it was agreed to proceed with I-131 therapy. In this patient with typical diffuse toxic goiter and mild to moderate symptoms of hyperthyroidism, a dose of 160 uCi/gm of thyroid tissue was selected. The calculated dose was 12.3 mCi, based on the thyroid weight of 40 gm and 24-hour radioactive iodine uptake of 52.1%. TREATMENT: The risks and benefits of I-131 therapy and of alternate modes of therapy with antithyroid drugs and surgery were explained to the patient. The patient's written informed consent for treatment was obtained. The patient was given both written and oral instructions regarding radiation safety precautions intended to maintain exposure to other individuals as low as reasonably achievable. The patient received 12.4 mCi of I-131 sodium iodide p.o. at 13:04 on 05/19/2025. The patient will continue treatment with propranolol. The patient had instructions to contact the manager regional office on next Thursday to decide the dose of methimazole if needed. We have discussed with the patient that further follow-up of his thyroid condition will be provided by Dr. Caal. The patient will call to obtain an appointment for thyroid function testing and/or clinical follow-up in 4-6 weeks. The patient was informed of the need for lifetime medical follow-up to monitor thyroid function because of the high risk of eventual hypothyroidism. Dr. Garcia and Dr. Stephenson also participated in the evaluation and treatment of this patient. Thank you for the referral of this patient. IKatlyn M.D., saw and evaluated the patient and agree with the plan of care as documented by the resident. I was present during the entire administration of the I-131 treatment dose. A copy of this report is being sent to the referring physician. Dictated by: Erwin España M.D. The radiology attending physician has personally reviewed this study, and had reviewed and/or edited this written report and agrees with it. Electronically signed by: Katlyn Bourne M.D. Narrative 05/19/2025 5:45 PM CDT EXAMINATION: THYROID SCINTIGRAPHY AND UPTAKE DATE STARTED: 05/18/2025 DATE COMPLETED: 05/19/2025 RADIOPHARMACEUTICAL: 9.93 mCi Tc-99m pertechnetate i.v. and 3.81 microcuries I-131 (sodium iodide) administered orally.. HISTORY: 65-year-old man with previous asymptomatic hyperthyroidism, treated with methimazole and propanolol, his most recent laboratory results on 05/18/2025 was, free T3 of 14.9 pg/mL, free T4 of 4.23 ng/dL and TSH of >0.01. FINDINGS: The thyroid images demonstrate uniform increased activity in a gland with faintly appearing pyramidal lobe as well as suppression of the background and salivary gland activities . The 24-hour radioactive iodine uptake is 52.1% (normal range 10-30%). Procedure Note Katlyn Bourne MD - 05/19/2025 EXAMINATION: THYROID SCINTIGRAPHY AND UPTAKE DATE STARTED: 05/18/2025 DATE COMPLETED: 05/19/2025 RADIOPHARMACEUTICAL: 9.93 mCi Tc-99m pertechnetate i.v. and 3.81 microcuries I-131 (sodium iodide) administered orally.. HISTORY: 65-year-old man with previous asymptomatic hyperthyroidism, treated with methimazole and propanolol, his most recent laboratory results on 05/18/2025 was, free T3 of 14.9 pg/mL, free T4 of 4.23 ng/dL and TSH of >0.01. FINDINGS: The thyroid images demonstrate uniform increased activity in a gland with faintly appearing pyramidal lobe as well as suppression of the background and salivary gland activities . The 24-hour radioactive iodine uptake is 52.1% (normal range 10-30%). IMPRESSION: Diffusely increased thyroid gland tracer and I-131 uptake, suggestive of Graves' disease. CONSULTATION AND RADIOACTIVE IODINE THERAPY DATE: 05/19/2025 HISTORY: 65 years-old Male referred by Dr. Caal for consultation, evaluation and treatment of hyperthyroidism. The patient originally complained of palpitations and marked weight loss, workup revealed hyper thyroidism, the patient was treated medically with propranolol and methimazole, which controlled his symptoms. PHYSICAL FINDINGS: the patient was alert and cooperative, the thyroid gland was mildly enlarged on palpation, his pulse was 80 bpm and regular, he had clear lungs no appreciable cardiac abnormality on auscultation, the patient had mild lower limbs subcutaneous edema without pretibial myxedema. No signs of exophthalmos or any occular abnormalities. No exaggerated tremors were identified. LABORATORY FINDINGS: his recent labs on 05/18/2025 was as follows: free T3 of 14.9 pg/mL, free T4 of 4.23 ng/dL and TSH of >0.01. IMPRESSION: The history, physical findings and laboratory studies in this patient indicate hyperthyroidism, due to diffuse toxic goiter (Graves' disease). There are no complicating medical problems. This patient was discussed with Dr. Bourne and it was agreed to proceed with I-131 therapy. In this patient with typical diffuse toxic goiter and mild to moderate symptoms of hyperthyroidism, a dose of 160 uCi/gm of thyroid tissue was selected. The calculated dose was 12.3 mCi, based on the thyroid weight of 40 gm and 24-hour radioactive iodine uptake of 52.1%. TREATMENT: The risks and benefits of I-131 therapy and of alternate modes of therapy with antithyroid drugs and surgery were explained to the patient. The patient's written informed consent for treatment was obtained. The patient was given both written and oral instructions regarding radiation safety precautions intended to maintain exposure to other individuals as low as reasonably achievable. The patient received 12.4 mCi of I-131 sodium iodide p.o. at 13:04 on 05/19/2025. The patient will continue treatment with propranolol. The patient had instructions to contact the manager regional office on next Thursday to decide the dose of methimazole if needed. We have discussed with the patient that further follow-up of his thyroid condition will be provided by Dr. Caal. The patient will call to obtain an appointment for thyroid function testing and/or clinical follow-up in 4-6 weeks. The patient was informed of the need for lifetime medical follow-up to monitor thyroid function because of the high risk of eventual hypothyroidism. Dr. Garcia and Dr. Stephenson also participated in the evaluation and treatment of this patient. Thank you for the referral of this patient. I, Katlyn Bourne M.D., saw and evaluated the patient and agree with the plan of care as documented by the resident. I was present during the entire administration of the I-131 treatment dose. A copy of this report is being sent to the referring physician. Dictated by: Erwin España M.D. The radiology attending physician has personally reviewed this study, and had reviewed and/or edited this written report and agrees with it. Electronically signed by: Katlyn Bourne M.D. Benita Talley NP IMG NM PROCEDURES Final Result * NM Consultation I-131 Outpatient (05/19/2025 2:40 PM CDT) Anatomical Region Laterality Modality N/A Nuclear Medicine 05/19/2025 3:34 PM CDT Impressions 05/19/2025 5:45 PM CDT Diffusely increased thyroid gland tracer and I-131 uptake, suggestive of Graves' disease. CONSULTATION AND RADIOACTIVE IODINE THERAPY DATE: 05/19/2025 HISTORY: 65 years-old Male referred by Dr. Caal for consultation, evaluation and treatment of hyperthyroidism. The patient originally complained of palpitations and marked weight loss, workup revealed hyper thyroidism, the patient was treated medically with propranolol and methimazole, which controlled his symptoms. PHYSICAL FINDINGS: the patient was alert and cooperative, the thyroid gland was mildly enlarged on palpation, his pulse was 80 bpm and regular, he had clear lungs no appreciable cardiac abnormality on auscultation, the patient had mild lower limbs subcutaneous edema without pretibial myxedema. No signs of exophthalmos or any occular abnormalities. No exaggerated tremors were identified. LABORATORY FINDINGS: his recent labs on 05/18/2025 was as follows: free T3 of 14.9 pg/mL, free T4 of 4.23 ng/dL and TSH of >0.01. IMPRESSION: The history, physical findings and laboratory studies in this patient indicate hyperthyroidism, due to diffuse toxic goiter (Graves' disease). There are no complicating medical problems. This patient was discussed with Dr. Bourne and it was agreed to proceed with I-131 therapy. In this patient with typical diffuse toxic goiter and mild to moderate symptoms of hyperthyroidism, a dose of 160 uCi/gm of thyroid tissue was selected. The calculated dose was 12.3 mCi, based on the thyroid weight of 40 gm and 24-hour radioactive iodine uptake of 52.1%. TREATMENT: The risks and benefits of I-131 therapy and of alternate modes of therapy with antithyroid drugs and surgery were explained to the patient. The patient's written informed consent for treatment was obtained. The patient was given both written and oral instructions regarding radiation safety precautions intended to maintain exposure to other individuals as low as reasonably achievable. The patient received 12.4 mCi of I-131 sodium iodide p.o. at 13:04 on 05/19/2025. The patient will continue treatment with propranolol. The patient had instructions to contact the manager regional office on next Thursday to decide the dose of methimazole if needed. We have discussed with the patient that further follow-up of his thyroid condition will be provided by Dr. Caal. The patient will call to obtain an appointment for thyroid function testing and/or clinical follow-up in 4-6 weeks. The patient was informed of the need for lifetime medical follow-up to monitor thyroid function because of the high risk of eventual hypothyroidism. Dr. Garcia and Dr. Stephenson also participated in the evaluation and treatment of this patient. Thank you for the referral of this patient. Katlyn Romero M.D., saw and evaluated the patient and agree with the plan of care as documented by the resident. I was present during the entire administration of the I-131 treatment dose. A copy of this report is being sent to the referring physician. Dictated by: Erwin España M.D. The radiology attending physician has personally reviewed this study, and had reviewed and/or edited this written report and agrees with it. Electronically signed by: Katlyn Bourne M.D. Narrative 05/19/2025 5:45 PM CDT EXAMINATION: THYROID SCINTIGRAPHY AND UPTAKE DATE STARTED: 05/18/2025 DATE COMPLETED: 05/19/2025 RADIOPHARMACEUTICAL: 9.93 mCi Tc-99m pertechnetate i.v. and 3.81 microcuries I-131 (sodium iodide) administered orally.. HISTORY: 65-year-old man with previous asymptomatic hyperthyroidism, treated with methimazole and propanolol, his most recent laboratory results on 05/18/2025 was, free T3 of 14.9 pg/mL, free T4 of 4.23 ng/dL and TSH of >0.01. FINDINGS: The thyroid images demonstrate uniform increased activity in a gland with faintly appearing pyramidal lobe as well as suppression of the background and salivary gland activities . The 24-hour radioactive iodine uptake is 52.1% (normal range 10-30%). Procedure Note Katlyn Bourne MD - 05/19/2025 EXAMINATION: THYROID SCINTIGRAPHY AND UPTAKE DATE STARTED: 05/18/2025 DATE COMPLETED: 05/19/2025 RADIOPHARMACEUTICAL: 9.93 mCi Tc-99m pertechnetate i.v. and 3.81 microcuries I-131 (sodium iodide) administered orally.. HISTORY: 65-year-old man with previous asymptomatic hyperthyroidism, treated with methimazole and propanolol, his most recent laboratory results on 05/18/2025 was, free T3 of 14.9 pg/mL, free T4 of 4.23 ng/dL and TSH of >0.01. FINDINGS: The thyroid images demonstrate uniform increased activity in a gland with faintly appearing pyramidal lobe as well as suppression of the background and salivary gland activities . The 24-hour radioactive iodine uptake is 52.1% (normal range 10-30%). IMPRESSION: Diffusely increased thyroid gland tracer and I-131 uptake, suggestive of Graves' disease. CONSULTATION AND RADIOACTIVE IODINE THERAPY DATE: 05/19/2025 HISTORY: 65 years-old Male referred by Dr. Caal for consultation, evaluation and treatment of hyperthyroidism. The patient originally complained of palpitations and marked weight loss, workup revealed hyper thyroidism, the patient was treated medically with propranolol and methimazole, which controlled his symptoms. PHYSICAL FINDINGS: the patient was alert and cooperative, the thyroid gland was mildly enlarged on palpation, his pulse was 80 bpm and regular, he had clear lungs no appreciable cardiac abnormality on auscultation, the patient had mild lower limbs subcutaneous edema without pretibial myxedema. No signs of exophthalmos or any occular abnormalities. No exaggerated tremors were identified. LABORATORY FINDINGS: his recent labs on 05/18/2025 was as follows: free T3 of 14.9 pg/mL, free T4 of 4.23 ng/dL and TSH of >0.01. IMPRESSION: The history, physical findings and laboratory studies in this patient indicate hyperthyroidism, due to diffuse toxic goiter (Graves' disease). There are no complicating medical problems. This patient was discussed with Dr. Bourne and it was agreed to proceed with I-131 therapy. In this patient with typical diffuse toxic goiter and mild to moderate symptoms of hyperthyroidism, a dose of 160 uCi/gm of thyroid tissue was selected. The calculated dose was 12.3 mCi, based on the thyroid weight of 40 gm and 24-hour radioactive iodine uptake of 52.1%. TREATMENT: The risks and benefits of I-131 therapy and of alternate modes of therapy with antithyroid drugs and surgery were explained to the patient. The patient's written informed consent for treatment was obtained. The patient was given both written and oral instructions regarding radiation safety precautions intended to maintain exposure to other individuals as low as reasonably achievable. The patient received 12.4 mCi of I-131 sodium iodide p.o. at 13:04 on 05/19/2025. The patient will continue treatment with propranolol. The patient had instructions to contact the manager regional office on next Thursday to decide the dose of methimazole if needed. We have discussed with the patient that further follow-up of his thyroid condition will be provided by Dr. Caal. The patient will call to obtain an appointment for thyroid function testing and/or clinical follow-up in 4-6 weeks. The patient was informed of the need for lifetime medical follow-up to monitor thyroid function because of the high risk of eventual hypothyroidism. Dr. Garcia and Dr. Stephenson also participated in the evaluation and treatment of this patient. Thank you for the referral of this patient. I, Katlyn Bourne M.D., saw and evaluated the patient and agree with the plan of care as documented by the resident. I was present during the entire administration of the I-131 treatment dose. A copy of this report is being sent to the referring physician. Dictated by: Erwin España M.D. The radiology attending physician has personally reviewed this study, and had reviewed and/or edited this written report and agrees with it. Electronically signed by: Katlyn Bourne M.D. us Benita Talley NP IMG NM PROCEDURES Final Result * NM Thyroid Imaging with Uptakes (05/19/2025 2:40 PM CDT) Anatomical Region Laterality Modality N/A Nuclear Medicine 05/19/2025 3:34 PM CDT Impressions 05/19/2025 5:45 PM CDT Diffusely increased thyroid gland tracer and I-131 uptake, suggestive of Graves' disease. CONSULTATION AND RADIOACTIVE IODINE THERAPY DATE: 05/19/2025 HISTORY: 65 years-old Male referred by Dr. Caal for consultation, evaluation and treatment of hyperthyroidism. The patient originally complained of palpitations and marked weight loss, workup revealed hyper thyroidism, the patient was treated medically with propranolol and methimazole, which controlled his symptoms. PHYSICAL FINDINGS: the patient was alert and cooperative, the thyroid gland was mildly enlarged on palpation, his pulse was 80 bpm and regular, he had clear lungs no appreciable cardiac abnormality on auscultation, the patient had mild lower limbs subcutaneous edema without pretibial myxedema. No signs of exophthalmos or any occular abnormalities. No exaggerated tremors were identified. LABORATORY FINDINGS: his recent labs on 05/18/2025 was as follows: free T3 of 14.9 pg/mL, free T4 of 4.23 ng/dL and TSH of >0.01. IMPRESSION: The history, physical findings and laboratory studies in this patient indicate hyperthyroidism, due to diffuse toxic goiter (Graves' disease). There are no complicating medical problems. This patient was discussed with Dr. Bourne and it was agreed to proceed with I-131 therapy. In this patient with typical diffuse toxic goiter and mild to moderate symptoms of hyperthyroidism, a dose of 160 uCi/gm of thyroid tissue was selected. The calculated dose was 12.3 mCi, based on the thyroid weight of 40 gm and 24-hour radioactive iodine uptake of 52.1%. TREATMENT: The risks and benefits of I-131 therapy and of alternate modes of therapy with antithyroid drugs and surgery were explained to the patient. The patient's written informed consent for treatment was obtained. The patient was given both written and oral instructions regarding radiation safety precautions intended to maintain exposure to other individuals as low as reasonably achievable. The patient received 12.4 mCi of I-131 sodium iodide p.o. at 13:04 on 05/19/2025. The patient will continue treatment with propranolol. The patient had instructions to contact the manager regional office on next Thursday to decide the dose of methimazole if needed. We have discussed with the patient that further follow-up of his thyroid condition will be provided by Dr. Caal. The patient will call to obtain an appointment for thyroid function testing and/or clinical follow-up in 4-6 weeks. The patient was informed of the need for lifetime medical follow-up to monitor thyroid function because of the high risk of eventual hypothyroidism. Dr. Garcia and Dr. Stephenson also participated in the evaluation and treatment of this patient. Thank you for the referral of this patient. I, Katlyn Bourne M.D., saw and evaluated the patient and agree with the plan of care as documented by the resident. I was present during the entire administration of the I-131 treatment dose. A copy of this report is being sent to the referring physician. Dictated by: Erwin España M.D. The radiology attending physician has personally reviewed this study, and had reviewed and/or edited this written report and agrees with it. Electronically signed by: Katlyn Bourne M.D. Narrative 05/19/2025 5:45 PM CDT EXAMINATION: THYROID SCINTIGRAPHY AND UPTAKE DATE STARTED: 05/18/2025 DATE COMPLETED: 05/19/2025 RADIOPHARMACEUTICAL: 9.93 mCi Tc-99m pertechnetate i.v. and 3.81 microcuries I-131 (sodium iodide) administered orally.. HISTORY: 65-year-old man with previous asymptomatic hyperthyroidism, treated with methimazole and propanolol, his most recent laboratory results on 05/18/2025 was, free T3 of 14.9 pg/mL, free T4 of 4.23 ng/dL and TSH of >0.01. FINDINGS: The thyroid images demonstrate uniform increased activity in a gland with faintly appearing pyramidal lobe as well as suppression of the background and salivary gland activities . The 24-hour radioactive iodine uptake is 52.1% (normal range 10-30%). Procedure Note Katlyn Bourne MD - 05/19/2025 EXAMINATION: THYROID SCINTIGRAPHY AND UPTAKE DATE STARTED: 05/18/2025 DATE COMPLETED: 05/19/2025 RADIOPHARMACEUTICAL: 9.93 mCi Tc-99m pertechnetate i.v. and 3.81 microcuries I-131 (sodium iodide) administered orally.. HISTORY: 65-year-old man with previous asymptomatic hyperthyroidism, treated with methimazole and propanolol, his most recent laboratory results on 05/18/2025 was, free T3 of 14.9 pg/mL, free T4 of 4.23 ng/dL and TSH of >0.01. FINDINGS: The thyroid images demonstrate uniform increased activity in a gland with faintly appearing pyramidal lobe as well as suppression of the background and salivary gland activities . The 24-hour radioactive iodine uptake is 52.1% (normal range 10-30%). IMPRESSION: Diffusely increased thyroid gland tracer and I-131 uptake, suggestive of Graves' disease. CONSULTATION AND RADIOACTIVE IODINE THERAPY DATE: 05/19/2025 HISTORY: 65 years-old Male referred by Dr. Caal for consultation, evaluation and treatment of hyperthyroidism. The patient originally complained of palpitations and marked weight loss, workup revealed hyper thyroidism, the patient was treated medically with propranolol and methimazole, which controlled his symptoms. PHYSICAL FINDINGS: the patient was alert and cooperative, the thyroid gland was mildly enlarged on palpation, his pulse was 80 bpm and regular, he had clear lungs no appreciable cardiac abnormality on auscultation, the patient had mild lower limbs subcutaneous edema without pretibial myxedema. No signs of exophthalmos or any occular abnormalities. No exaggerated tremors were identified. LABORATORY FINDINGS: his recent labs on 05/18/2025 was as follows: free T3 of 14.9 pg/mL, free T4 of 4.23 ng/dL and TSH of >0.01. IMPRESSION: The history, physical findings and laboratory studies in this patient indicate hyperthyroidism, due to diffuse toxic goiter (Graves' disease). There are no complicating medical problems. This patient was discussed with Dr. Bourne and it was agreed to proceed with I-131 therapy. In this patient with typical diffuse toxic goiter and mild to moderate symptoms of hyperthyroidism, a dose of 160 uCi/gm of thyroid tissue was selected. The calculated dose was 12.3 mCi, based on the thyroid weight of 40 gm and 24-hour radioactive iodine uptake of 52.1%. TREATMENT: The risks and benefits of I-131 therapy and of alternate modes of therapy with antithyroid drugs and surgery were explained to the patient. The patient's written informed consent for treatment was obtained. The patient was given both written and oral instructions regarding radiation safety precautions intended to maintain exposure to other individuals as low as reasonably achievable. The patient received 12.4 mCi of I-131 sodium iodide p.o. at 13:04 on 05/19/2025. The patient will continue treatment with propranolol. The patient had instructions to contact the manager regional office on next Thursday to decide the dose of methimazole if needed. We have discussed with the patient that further follow-up of his thyroid condition will be provided by Dr. Caal. The patient will call to obtain an appointment for thyroid function testing and/or clinical follow-up in 4-6 weeks. The patient was informed of the need for lifetime medical follow-up to monitor thyroid function because of the high risk of eventual hypothyroidism. Dr. Garcia and Dr. Stephenson also participated in the evaluation and treatment of this patient. Thank you for the referral of this patient. Katlyn Romero M.D., saw and evaluated the patient and agree with the plan of care as documented by the resident. I was present during the entire administration of the I-131 treatment dose. A copy of this report is being sent to the referring physician. Dictated by: Erwin España M.D. The radiology attending physician has personally reviewed this study, and had reviewed and/or edited this written report and agrees with it. Electronically signed by: Katlyn Bourne M.D. Benitamandie Kaspertirso Talley NP IMG NM PROCEDURES Final Result * NM Hyperthyroid I-131 Therapy (05/19/2025 2:40 PM CDT) Anatomical Region Laterality Modality Head and Neck N/A Nuclear Medicine 05/19/2025 3:34 PM CDT Impressions 05/19/2025 5:45 PM CDT Diffusely increased thyroid gland tracer and I-131 uptake, suggestive of Graves' disease. CONSULTATION AND RADIOACTIVE IODINE THERAPY DATE: 05/19/2025 HISTORY: 65 years-old Male referred by Dr. Caal for consultation, evaluation and treatment of hyperthyroidism. The patient originally complained of palpitations and marked weight loss, workup revealed hyper thyroidism, the patient was treated medically with propranolol and methimazole, which controlled his symptoms. PHYSICAL FINDINGS: the patient was alert and cooperative, the thyroid gland was mildly enlarged on palpation, his pulse was 80 bpm and regular, he had clear lungs no appreciable cardiac abnormality on auscultation, the patient had mild lower limbs subcutaneous edema without pretibial myxedema. No signs of exophthalmos or any occular abnormalities. No exaggerated tremors were identified. LABORATORY FINDINGS: his recent labs on 05/18/2025 was as follows: free T3 of 14.9 pg/mL, free T4 of 4.23 ng/dL and TSH of >0.01. IMPRESSION: The history, physical findings and laboratory studies in this patient indicate hyperthyroidism, due to diffuse toxic goiter (Graves' disease). There are no complicating medical problems. This patient was discussed with Dr. Bourne and it was agreed to proceed with I-131 therapy. In this patient with typical diffuse toxic goiter and mild to moderate symptoms of hyperthyroidism, a dose of 160 uCi/gm of thyroid tissue was selected. The calculated dose was 12.3 mCi, based on the thyroid weight of 40 gm and 24-hour radioactive iodine uptake of 52.1%. TREATMENT: The risks and benefits of I-131 therapy and of alternate modes of therapy with antithyroid drugs and surgery were explained to the patient. The patient's written informed consent for treatment was obtained. The patient was given both written and oral instructions regarding radiation safety precautions intended to maintain exposure to other individuals as low as reasonably achievable. The patient received 12.4 mCi of I-131 sodium iodide p.o. at 13:04 on 05/19/2025. The patient will continue treatment with propranolol. The patient had instructions to contact the manager regional office on next Thursday to decide the dose of methimazole if needed. We have discussed with the patient that further follow-up of his thyroid condition will be provided by Dr. Caal. The patient will call to obtain an appointment for thyroid function testing and/or clinical follow-up in 4-6 weeks. The patient was informed of the need for lifetime medical follow-up to monitor thyroid function because of the high risk of eventual hypothyroidism. Dr. Garcia and Dr. Stephenson also participated in the evaluation and treatment of this patient. Thank you for the referral of this patient. IKatlyn M.D., saw and evaluated the patient and agree with the plan of care as documented by the resident. I was present during the entire administration of the I-131 treatment dose. A copy of this report is being sent to the referring physician. Dictated by: Erwin España M.D. The radiology attending physician has personally reviewed this study, and had reviewed and/or edited this written report and agrees with it. Electronically signed by: Katlyn Bourne M.D. Narrative 05/19/2025 5:45 PM CDT EXAMINATION: THYROID SCINTIGRAPHY AND UPTAKE DATE STARTED: 05/18/2025 DATE COMPLETED: 05/19/2025 RADIOPHARMACEUTICAL: 9.93 mCi Tc-99m pertechnetate i.v. and 3.81 microcuries I-131 (sodium iodide) administered orally.. HISTORY: 65-year-old man with previous asymptomatic hyperthyroidism, treated with methimazole and propanolol, his most recent laboratory results on 05/18/2025 was, free T3 of 14.9 pg/mL, free T4 of 4.23 ng/dL and TSH of >0.01. FINDINGS: The thyroid images demonstrate uniform increased activity in a gland with faintly appearing pyramidal lobe as well as suppression of the background and salivary gland activities . The 24-hour radioactive iodine uptake is 52.1% (normal range 10-30%). Procedure Note Katlyn Bourne MD - 05/19/2025 EXAMINATION: THYROID SCINTIGRAPHY AND UPTAKE DATE STARTED: 05/18/2025 DATE COMPLETED: 05/19/2025 RADIOPHARMACEUTICAL: 9.93 mCi Tc-99m pertechnetate i.v. and 3.81 microcuries I-131 (sodium iodide) administered orally.. HISTORY: 65-year-old man with previous asymptomatic hyperthyroidism, treated with methimazole and propanolol, his most recent laboratory results on 05/18/2025 was, free T3 of 14.9 pg/mL, free T4 of 4.23 ng/dL and TSH of >0.01. FINDINGS: The thyroid images demonstrate uniform increased activity in a gland with faintly appearing pyramidal lobe as well as suppression of the background and salivary gland activities . The 24-hour radioactive iodine uptake is 52.1% (normal range 10-30%). IMPRESSION: Diffusely increased thyroid gland tracer and I-131 uptake, suggestive of Graves' disease. CONSULTATION AND RADIOACTIVE IODINE THERAPY DATE: 05/19/2025 HISTORY: 65 years-old Male referred by Dr. Caal for consultation, evaluation and treatment of hyperthyroidism. The patient originally complained of palpitations and marked weight loss, workup revealed hyper thyroidism, the patient was treated medically with propranolol and methimazole, which controlled his symptoms. PHYSICAL FINDINGS: the patient was alert and cooperative, the thyroid gland was mildly enlarged on palpation, his pulse was 80 bpm and regular, he had clear lungs no appreciable cardiac abnormality on auscultation, the patient had mild lower limbs subcutaneous edema without pretibial myxedema. No signs of exophthalmos or any occular abnormalities. No exaggerated tremors were identified. LABORATORY FINDINGS: his recent labs on 05/18/2025 was as follows: free T3 of 14.9 pg/mL, free T4 of 4.23 ng/dL and TSH of >0.01. IMPRESSION: The history, physical findings and laboratory studies in this patient indicate hyperthyroidism, due to diffuse toxic goiter (Graves' disease). There are no complicating medical problems. This patient was discussed with Dr. Bourne and it was agreed to proceed with I-131 therapy. In this patient with typical diffuse toxic goiter and mild to moderate symptoms of hyperthyroidism, a dose of 160 uCi/gm of thyroid tissue was selected. The calculated dose was 12.3 mCi, based on the thyroid weight of 40 gm and 24-hour radioactive iodine uptake of 52.1%. TREATMENT: The risks and benefits of I-131 therapy and of alternate modes of therapy with antithyroid drugs and surgery were explained to the patient. The patient's written informed consent for treatment was obtained. The patient was given both written and oral instructions regarding radiation safety precautions intended to maintain exposure to other individuals as low as reasonably achievable. The patient received 12.4 mCi of I-131 sodium iodide p.o. at 13:04 on 05/19/2025. The patient will continue treatment with propranolol. The patient had instructions to contact the manager regional office on next Thursday to decide the dose of methimazole if needed. We have discussed with the patient that further follow-up of his thyroid condition will be provided by Dr. Caal. The patient will call to obtain an appointment for thyroid function testing and/or clinical follow-up in 4-6 weeks. The patient was informed of the need for lifetime medical follow-up to monitor thyroid function because of the high risk of eventual hypothyroidism. Dr. Garcia and Dr. Stephenson also participated in the evaluation and treatment of this patient. Thank you for the referral of this patient. I, Katlyn Bourne M.D., saw and evaluated the patient and agree with the plan of care as documented by the resident. I was present during the entire administration of the I-131 treatment dose. A copy of this report is being sent to the referring physician. Dictated by: Erwin España M.D. The radiology attending physician has personally reviewed this study, and had reviewed and/or edited this written report and agrees with it. Electronically signed by: Katlyn Bourne M.D. us Benita Talley [employer] NM PROCEDURES Final Result * (ABNORMAL) T3, free (05/18/2025 11:19 AM CDT) Free T3 14.9(H) 2.0 - 4.4 pg/mL Blood 05/18/2025 11:1 9 AM CDT 05/18/2025 1:06 PM CDT Narrative [facility] - 05/18/2025 3:09 PM CDT This requires an endocrinology consult. Name of manager regional?->Dr. arzate Erwin España MD LAB BLOOD ORDERABLES Arpita l Result Performing Organization Address [facility]/[place] [address] * (ABNORMAL) TSH (05/18/2025 11:19 AM CDT) Thyroid Stimulating Hormone <0.01(L) 0.30 - 4.20 mcIUnit/mL Blood 05/18/2025 11:1 9 AM CDT 05/18/2025 1:06 PM CDT Erwin España MD LAB BLOOD ORDERABLES Arpita l Result Performing Organization Address [facility]/[employer] de Phone Number [facility] [place] [address] * (ABNORMAL) T4, free (05/18/2025 11:19 AM CDT) Free T4 4.23(H) 0.90 - 1.70 ng/dL Blood 05/18/2025 11:1 9 AM CDT 05/18/2025 1:06 PM CDT Erwin España MD LAB BLOOD ORDERABLES Arpita l Result Performing Organization Address City/[facility]/[place] [address] * Thyroid stimulating immunoglobulin (04/06/2025 3:03 PM CDT) TSIG 1.3 <=1.3 [facility] Comment: Test Performed by: [facility] [address] [place] [address] Psychiatry Teacher: Issa Paez Ph.D.; CLIA# [id number] Blood 04/06/2025 3:03 PM CDT 04/06/2025 8:41 PM CDT Joel Caal MD LAB BLOOD ORDERABLES Fin al Result [facility] [place] [address] [facility] * (ABNORMAL) TSH (04/06/2025 2:59 PM CDT) TSH <0.01(L) 0.27 - 4.20 uIU/mL [facility] Blood 04/06/2025 2:59 PM CDT 04/06/2025 3:02 PM CDT Joel Caal MD LAB BLOOD ORDERABLES Fin al Result Performing Organization Address City/[facility]/ZIP Co de Phone Number [facility] [id number] [facility] [address] [place] [address] * (ABNORMAL) T4, free (04/06/2025 2:59 PM CDT) Free T4 3.72(HH) 0.93 - 1.70 ng/dL [facility] Comment:am Blood 04/06/2025 2:59 PM CDT 04/06/2025 3:02 PM CDT Joel Caal MD LAB BLOOD ORDERABLES Fin al Result Performing Organization Address City/[facility]/ZIP Co de Phone Number [facility] [address] [facility] [address] [place] [address] from Last 3 Months Insurance [facility] CHOICE PL[facility] Care Teams History Department Chair Relationship Specialty Start Date End Date Elisa Charles MD PCP - General Family Practice 10/15/22
--- OUTSIDE RECORDS SUMMARY | 2025-07-06 11:24 | XMS_ITS | Encounter Summary ---
Author Organization [facility] Address [address] [place] [address] Care Team Providers Care Orthodontist Assistant Name Role Phone Elisa Charles MD Primary Care Provider Encounter Details Date Type Department Care Team (Late st Contact Info) Description 06/26/2025 Results Follow-Up [facility] [address] [place] [phone] Joel Caal MD [address] [place] [address] [address] [place], [place] [id number] TSH, T4, free Social History Tobacco Use Types Packs/Day Years Used Date Smoking Tobacco: Never Smokeless Tobacco: Never AUDIT-C Answer Date Recorded Q1: How often [...] on file Legal Sex Male 9:30 AM EP SPECIALIST Gender Identity Not on file Sexual Orientation Not on file documented as of this encounter Functional Status * BP Location Answer Date of Assessment Author Left arm 06/26/2025 11:21 AM Juan Kaur MA * BP Location Answer Date of Assessment Author Left arm 06/26/2025 11:21 AM Juan Kaur MA documented as of this encounter Plan of Treatment Not on file documented as of this encounter Visit Diagnoses Not on filedocumented in this encounter Care Teams Orthodontist Assistant Relationship Specialty Start Date End Date Elisa Charles MD PCP - General Family Practice 10/15/22 documented as of this encounter
[2025-07-06 13:03] LABS: Hematocrit 49.9 % (42.0-52.0); Hemoglobin 16.3 g/dL (14.0-18.0); Immature Granulocyte Percent A 0.2 % (0-0.5); Lymphocytes Absolute Auto 3.62 K/mm3 (0.9-3.2); Mean Corpuscular HGB Conc 32.7 g/dl (32-36); Mean Corpuscular Hemoglobin 29.1 pg (26-34); Mean Corpuscular Volume 88.9 fl (80-100); Nucleated Red Blood Cells Absolute Auto 0.000 K/mm3 (0.0-0.012); Nucleated Red Blood Cells Perc 0.0 % (0.0-0.2); Platelet Count Result 220 k/mm3 (150-375); Red Blood Count 5.61 M/mm3 (4.6-6.20); White Blood Count 8.2 K/mm3 (4.5-10.0)
[2025-07-06 13:08] LABS: Alanine Aminotransferase 32 U/L (6-50); Albumin Level 4.4 g/dL (3.5-5.1); Alkaline Phosphatase 174 U/L (38-126); Anion Gap 10 mmol/L (4-12); Aspartate Amino Transferase 50 U/L (17-59); Bilirubin,Total 0.5 mg/dL (0.2-1.3); Blood Urea Nitrogen 17 mg/dL (9-20); Calcium 9.8 mg/dL (8.4-10.2); Carbon Dioxide 23 mmol/L (22-30); Chloride 105 mmol/L (98-107); Cholesterol 118 mg/dL (0-200); Estimated Glomerular Filt Rate > 60; Glucose 115 mg/dL (65-110); HDL Direct 33 mg/dL; Magnesium 1.8 mg/dL (1.6-2.3); Potassium 4.4 mmol/L (3.4-5.0); Sodium 138 mmol/L (137-145); Total Protein 7.7 g/dL (6.3-8.2); Triglycerides 106 mg/dL (<150)
[2025-07-06 13:40] LABS: Thyroid Stimulating Hormone Reflex < 0.015 uIU/mL (0.465-4.68)
[2025-07-06 13:42] LABS: MALB Creatinine Ratio 49.7 mg/g (0-30)
[2025-07-06 13:46] LABS: Prostate Specific Antigen 2.3 ng/mL (< OR = 4.0)
[2025-07-06 14:04] LABS: Vitamin B12 310.0 pg/mL (239-931)
[2025-07-06 15:52] LABS: Hemoglobin A1C 6.3 % (<5.7)
[2025-07-06 21:16] LABS: Free T4 Free Thyroxine Reflex 2.30 ng/dL (0.78-2.19)
[2025-07-09 13:08] LABS: Free Testosterone (Direct) 4.1 pg/mL (6.6-18.1)
== END 2025-07-06 10:30 | disposition home or self-care (01) ==
LOC: ANHGOSHLAB 10:29
PROVIDERS: PCP Nurse Practitioner Family; Visit Provider Nurse Practitioner Family
DX: E11.9 Type 2 diabetes mellitus without complications (principal); E07.9 Disorder of thyroid, unspecified; Z12.5 Encounter for screening for malignant neoplasm of prostate; E55.9 Vitamin D deficiency, unspecified; E29.1 Testicular hypofunction
CPT/HCPCS: 36415; 80053; 80061; 82043; 82306; 82607; 83036; 83735; 84153; 84402; 84403; 84439; 84443; 85025; G0103